=== PATIENT | female | born 1995 | race Caucasian/White ===

== ENCOUNTER 2017-05-24 12:05 | Emergency (ER) | payer SELFPAY ==
[2017-05-24 12:07] VITALS: BMI 31.8
--- NOTE | 2017-05-24 13:37 | DR.BITE ---
HPI - Time Seen Time seen: 13:45 - PCP Primary Care Physician: DEE - HPI Comment HPI Comment: HISTORY BELOW. - Complaint/Symptoms Chief Complaint Doctor Comments: SPIDER BITE. LESION NOTED 5 DAYS AGO. PROGRESSIVELY EXTENDING. SLIGHTLY SWOLLEN AND RED. NO FEVER. SMALL DRINAGE NOTED TODAY. Chief Complaint:: PT. GOT POSSIBLE BROWN RECLUSE SPIDER BITE TO LEFT FOREARM THAT APPEARED A WEEK AGO. PT. STATES AREA HAS BEEN DRAINING AND IS PAINFUL. - Nurses notes reviewed Nurses Notes Review: Yes - Source History Provided: Patient - Mode of Arrival Mode of Arrival: Ambulatory - Duration Duration: Constant Duration: Days - Location Location: Left (FOREARM.) - Timing Onset of Chief Complaint: 05/19/17 ago: Days - Context Caused by: Spider Symptoms: Pain, Pruritis, Rash, Redness - Severity Pain: Moderate SOB Severity: Mild - Associated signs and symptoms Associated signs and symptoms: Redness, Swelling PMH - PMH Past Medical History: No Past Surgical History: Yes Surgical History: Other Past Surgical History Comment: LEFT FOOT - Family History History of Family Medical Conditions: No - Social History Does patient currently use any type of tobacco product: No Have you used tobacco products in the last 12 months: Yes Type of Tobacco Use: Cigarettes Does any household member use tobacco: No Alcohol Use: None Do you use any recreational Drugs:: No Lives Where: [facility] - infectious screening In the last 2 months have you had wt loss of >10#?: NO Have you had fever, night sweats or hemotysis?: No Have you traveled outside the country in the last 6 months?: No Isolation: Standard ROS - Review of Systems Constitutional: No Symptoms Reported. negative: Chills, Fever, Weakness, Fatigue Eyes: No Symptoms Reported. negative: Eye Pain, Discharge ENTM: No Symptoms Reported. negative: Ear Pain, Ear Discharge, Nose Discharge, Nose Congestion, Throat Pain Respiratoy: No Symptoms Reported Cardiovascular: No Symptoms Reported Gastrointestinal/Abdominal: No Symptoms Reported Genitourinary: No Symptoms Reported Neurological: No Symptoms Reported Musculoskeletal: Left, Forearm (ABSCESS WITH CELLULITIS LT FOREARM) Integumentary: Lesions (ABSCESS AND CELLULITIS LT FOREARM.) Hematologic/Lymphatic: No Symptoms Reported Endocrine: No Symptoms Reported All Other Systems: Reviewed and Negative PE - Vital Signs Vital Signs: Temp Pulse Resp BP Pulse Ox 05/24/17 12:05 98.7 F 75 17 122/74 98 - Constitutional Limitations: No Limitations General Appearance: Alert - Head Head Exam: Normal Inspection - Eyes Eye exam: Normal Appearance - ENT ENT Exam: Normal External Ear Exam - Neck Neck Exam: Trachea Midline - Chest Chest Inspection: Symmetric Chest Wall Rise - Respiratory Respiratory Exam: Normal Lung Sounds Bilat Respiratory Exam: Bilateral Clear to Auscultation - Cardiovascular Cardiovascular Exam: Regular Rate, Normal Rhythm, Normal Heart Sounds - Abdominal Exam Abdominal Exam: Normal Bowel Sounds, Soft. negative: Tenderness - Extremities Extremities Exam: Tenderness (RT MID INNER FOREARM WITH PUSTULAR LESION THAT IS DRAINING WITH REDNESS AROUND IT.) - Back Back Exam: Normal Inspection - Neurologic Neurological Exam: Alert, Oriented X3 - Skin Skin Exam: Erythema Type of Lesion: Abscess, Bite/Sting, Other (CELLULITIS) Distribution: LUE Description: Tenderness, Erythematous, Swelling, Other (PUSTULAR LESION) Involving: Partial extremity Through to: Bite Distal Function: Normal MDM - Additional Information Obtained From Additional information provided by: Family - Differential Diagnosis Differential Diagnosis: Cellulitis Other Differential Diagnosis: ABSCESS LT FOREARM. Course - Treatment Treatment: SEE ORDERS. - Education/Counseling Education/Counseling: Patient, Family, Education Educated On: Diagnosis, Needs for Follow Up ROR - Labs Reviewed Laboratory: 05/24/17 13:21 Arm - Left Gram Stain - Final - Diagnosis Discharge Problem: Cellulitis, Abscess - Discharge Plan Disposition: HOME, SELF-CARE Condition: Stable Prescriptions: Ibuprofen [MOTRIN TAB 800 MG *] 800 mg PO Q8H PRN #90 tab PRN Reason: Pain/Inflammation Sulfamethoxazole-Trimethoprim [BACTRIM DS TAB 800/160 MG *] 1 tab PO BID #20 tab - Follow ups/Referrals Follow ups/Referrals: CLARISSA STARK [STAFF PHYSICIAN] - 2 days NFD,None [Primary Care Provider] - 2 days - Instructions Instructions: Skin Abscess, [id number], Cellulitis, Adult, [id number] Additional Instructions: RETURN TO ED IF WORSE.
[2017-05-24 13:49] VITALS: BP 122/74
== END 2017-05-24 13:54 | disposition home or self-care (01) ==
LOC: ER 12:14
DX: L03.114 Cellulitis of left upper limb (principal); L02.414 Cutaneous abscess of left upper limb; B95.62 Methicillin resistant Staphylococcus aureus infection as the cause of diseases classified elsewhere; W57.XXXA Bitten or stung by nonvenomous insect and other nonvenomous arthropods, initial encounter; Y92.9 Unspecified place or not applicable
CPT/HCPCS: 87070; 87075; 87077; 87186; 87205; 99282; 99283